=== PATIENT | female | born 1995 | race Caucasian/White ===

== ENCOUNTER → 2020-06-01 13:51 | Outpatient (BNVA) | payer MEDICAID, SELFPAY | PROVIDERS: Visit Provider Advanced Practice Midwife | DX: Z32.01 Encounter for pregnancy test, result positive (principal) | CPT/HCPCS: 81025; 99202 ==

== ENCOUNTER 2020-08-01 13:21 | Outpatient (REF) | payer MEDICAID, SELFPAY ==
[2020-08-01 13:45] LABS: COVID-19 Test Negative (Negative); IDNOW Serial# 08D9AD1C
== END 2020-08-01 13:22 | disposition home or self-care (01) ==
LOC: HO.LAB 13:21
PROVIDERS: Visit Provider Internal Medicine
DX: Z20.822 Contact with and (suspected) exposure to COVID-19 (principal)
CPT/HCPCS: 36415; 87635; C9803